=== PATIENT | female | born 1945 | race Hispanic/Latino ===

== ENCOUNTER 2016-11-15 11:27 | Day surgery (SDC) | payer MEDICARE ==
[2016-11-12 10:00] VITALS: BMI 30.6
[2016-11-15 13:55] VITALS: O2SAT 99
[2016-11-15] MEDS ORDERED: Propofol 10 mg/ml Inj (20 ML) ONE (13:55)
[2016-11-15] MEDS ORDERED: Sodium Chloride 0.9% 1,000 ML IV SCH (14:30)
[2016-11-15 15:34] VITALS: BP 153/76; PULSE 64; RESP 16; TEMP 97.5
== END 2016-11-15 16:08 | disposition home or self-care (01) ==
LOC: ENDO 11:27
PROVIDERS: ATTEND Internal Medicine
DX: K52.9 Noninfective gastroenteritis and colitis, unspecified (principal); K64.8 Other hemorrhoids
CPT/HCPCS: 45380; 88305; J2001; J2704; J7040 ×2